=== PATIENT | female | born 1965 | race Caucasian/White ===

== ENCOUNTER 2025-02-02 13:31 | Emergency (ER) | payer OTHER, SELFPAY ==
[2025-02-02 13:38] VITALS: BP 113/73
[2025-02-02 13:57] LABS: Hematocrit 38.7 % (37.0-47.0); Hemoglobin 12.9 g/dL (12.0-16.0); Mean Corp Hgb Conc. 33.3 g/dL (33.0-37.0); Mean Corpuscular Hgb 29.2 pg (27.0-31.0); Mean Corpuscular Volume 87.6 fL (81.0-99.0); Platelet Count 408 10^3/uL (130-400); Red Blood Cell Count 4.42 10^6/uL (4.20-5.40); Red Cell Dist. Width 14.1 % (11.5-14.5); White Blood Cell Count 12.3 10^3/uL (4.8-10.8)
[2025-02-02 14:18] LABS: Troponin I < 0.012 ng/ml
[2025-02-02 14:28] LABS: ALT (SGPT) 17 U/L (0-35); AST (SGOT) 20 U/L (14-36); Albumin 4.4 g/dl (3.5-5.0); Alkaline Phosphatase 81 U/L (38-126); Blood Urea Nitrogen 16 mg/dl (7-17); Calcium 9.3 mg/dl (8.4-10.2); Carbon Dioxide 26 mmol/L (22-30); Chloride 102 mmol/L (98-107); Glucose 203 mg/dl (70-99); Sodium 140 mmol/L (135-145); Total Bilirubin 0.4 mg/dl (0.2-1.3); Total Protein 7.2 g/dl (6.3-8.2); eGFR > 60.00
[2025-02-02 15:31] LABS: % Basophils 1.2 % (0-2); % Immature Granulocytes 0.4 % (0-0.5); % Monocytes 6.2 % (1.7-9.3); % Neutrophils 56.2 % (42.2-75.2); Absolute Basophils 0.2 10^3/uL (0-0.2); Absolute Eosinophils 0.1 10^3/uL (0-0.7); Absolute Immature Granulocytes 0.1 10^3/uL (0-0.05); Absolute Lymphocytes 4.3 10^3/uL (1.2-3.4); Absolute Monocytes 0.8 10^3/uL (0.1-0.6); Absolute Neutrophils 6.9 10^3/uL (1.4-6.5); Nucleated Red Blood Cells % 0 %
[2025-02-02 16:10] VITALS: BP 144/72
--- NOTE | 2025-02-02 16:38 | ED.GENMED ---
History of Present Illness
General
Chief Complaint: Chest Pain
Source: patient
Exam Limitations: none
Time Seen by Provider: 02/02/25 16:09
Nursing documentation reviewed up to this point in time: agreed with
History of Present Illness
History of Present Illness:
Patient is a 59-year-old female with history migraines, hyperlipidemia, elevated platelets presenting to the emergency department for evaluation of multiple symptoms. Patient states on Sunday she started to 'not feel right'. She reports a sharp
pain across her mid chest associated with mild difficulty breathing, and lightheadedness. Patient denies any true dizziness sensation or back pain. She took her blood pressure at that time and found that her BP was elevated in 160s/80s. Over the
past few days symptoms have persisted and patient states that today she has a headache which did not fully respond to medication at home. Patient denies any fevers, chills, cough, neck pain, visual changes.
Patient has no personal or family history of blood clots or clotting disorders. No recent travel or recent surgery. No exogenous hormone use.
She does however have a family history of CAD.
Past History
Past History
ED Past Medical History: Asthma, HTN, Hypercholesterolemia, NIDDM (Diet Controlled), Psychiatric (Bipolar disorder) and Other (Degenerative disc disease cervical spine)
ED Past Surgical History: Appendectomy, Cholecystectomy, Gynecological (partial hysterectomy) and Other (Splenectomy, Portionof Pancreas removed)
Social History
Tobacco: Non-smoker
Alcohol: None
Drug: None
Personal:
Living: with family
Family History
Family History: Other (No significant)
Review of Systems
Review of Systems
Allergies reviewed?: Yes
All Other Systems: ROS reviewed and negative except as documented in HPI and ROS
Phy Exam
Physical Exam
Physical Exam:
Vitals: Tachycardic on arrival, otherwise vital signs stable. Afebrile
General: Patient is well appearing, no acute distress. Nontoxic appearing
Skin: Warm and dry, no rashes or lesions
Head: Normocephalic, atraumatic
Eyes: Sclera nonicteric. EOMs intact. No nystagmus.
Throat: Protecting airway
Neck: Normal ROM, no cervical spine tenderness, no meningismus. No JVD
Cardiac: Regular rate and rhythm, no murmurs.
Pulm: Normal respiratory effort, no wheezes, rales, rhonchi heard on exam.
Abdomen: Abdomen soft and nontender.
Extremities: No evidence of cyanosis or edema. Palpable DP pulses bilaterally. Negative Homans' sign bilaterally.
Neuro: AAOx3. Grossly intact.
Psychiatric: Normal affect.
Scores
Heart Score for Chest Pain Patients
STEMI patient?: No
History: Slightly or Non-Suspicious
ECG: Normal
Age: >45 - <65 years
Risk Factors: 1 or 2 Risk Factors
Troponin: </= Normal Limit
Heart Score for Chest Pain Patients: 2
Heart Score Risk: 2.5% MACE over next 6 weeks
Course
Orders/Labs/Results
Orders:
Orders
02/02/25 13:32
Electrocardiogram (*1) Urgent
Reason for Study: Chest Pain
EKG- Treatment ONCE
02/02/25 13:44
Complete Blood Count/With Diff Urgent
Comprehensive Metabolic Panel Urgent
Troponin I Urgent
02/02/25 16:30
EKG- Treatment ONCE
0.9% Sodium Chloride 1000 ml [Nss] 1,000 ml IV BOLUS
Acetaminophen [Tylenol] 650 mg PO NOW STA
02/02/25 16:45
Electrocardiogram (*1) Urgent
Reason for Study: Chest Pain
02/02/25 16:50
COVID-19 Antigen Urgent
Source: Nasal Swab
D-Dimer Urgent
Troponin I Urgent
Influenza A+B Rapid Molecular Urgent
DAWNA Source: Nasal Swab
Specimen Description:
02/02/25 17:44
CR Chest - 2 Views Urgent
Comment:
Reason For Exam: Chest pain
Abnormal Lab Results
02/02/25
13:44
WBC 12.3 H 10^3/uL
(4.8-10.8)
Plt Count 408 H 10^3/uL
(130-400)
Abs Immat Gran (auto) 0.1 H 10^3/uL
(0-0.05)
Absolute Neuts (auto) 6.9 H 10^3/uL
(1.4-6.5)
Absolute Lymphs (auto) 4.3 H 10^3/uL
(1.2-3.4)
Absolute Monos (auto) 0.8 H 10^3/uL
(0.1-0.6)
Glucose 203 H mg/dl
(70-99)
02/02/25 13:44
02/02/25 13:44
Vital Signs
Initial and Last Documented VS:
Initial Vital Signs
Temp Pulse Resp BP Pulse Ox
98.2 F 105 16 113/73 98
02/02/25 13:38 02/02/25 13:38 02/02/25 13:38 02/02/25 13:38 02/02/25 13:38
Last Documented Vital Signs
Temp Pulse Resp BP Pulse Ox
98.2 F 80 18 133/79 99
02/02/25 13:38 02/02/25 18:02 02/02/25 18:02 02/02/25 19:25 02/02/25 19:27
MDM/Problems Addressed
Differential Diagnosis Includes:
Not limited to: Viral illness, acute dehydration, pericarditis, myocarditis, acute coronary syndrome, pulmonary embolism, etc.
MDM/Problems Addressed:
Patient is a 59 year-old female with history as documented presenting with concerns of elevated blood pressure associated with chest pain. Symptoms somewhat intermittent over the past few days. No true exertional component to symptoms. Patient
mildly hypertensive and tachycardic on arrival, otherwise vital signs stable. Physical exam as above. Patient overall very well appearing, in no apparent distress. Cardio/pulmonary exam unremarkable. Patient has 2+ radial pulses bilaterally. Neuro
exam w/o focal deficits. Basic labs were initiated in triage. Mild leukocytosis otherwise unremarkable. Initial troponin undetectable with non ischemic EKGi. Given mild pleuritic component to symptoms � will obtain D dimer. Although low suspicion
for acute coronary syndrome � will repeat troponin/ EKG to trend.
Update: viral swabs negative. Fortunately, d-dimer was negative. Repeat troponin undetectable with an unchanged EKG. Patient�s blood pressure / heart rate have normalized without intervention w/o any evidence of end organ damage. CXR without acute
abnormalities. Patient remains very well and comfortable appearing. Serial troponin negative x 2 w/ undetectable d-dimer. Extensive workup in ED negative. Very low suspicion for emergent process today. Feel stable for discharge home with primary
care follow- up. Will provide referral information for cardiology given family history. Patient comfortable with plan. Very strict return precautions discussed.
Chronic conditions affecting care:
Hyperlipidemia, DM
Acute Exacerbation and/or Progression of Chronic Illness:
Acutely hyperglycemic
*Radiology
Radiology exam reviewed: preliminary read by ED provider (chest xray reviewed by me- no acute abnormalities) and radiology read reviewed
*Pulse Oximetry
Patient hypoxic: no
*EKG
Interpreted by ED Provider?: Yes
EKG Intrepretation Date: 02/02/25
Interpretation: normal
Comparison EKG: no changes
Heart Rate: 100
Rate: normal
Rhythm: sinus
[place]: normal axis
Interval: normal QT interval
QRS Pattern: normal QRS
Ischemia: no ischemia
*Animal Warden Interpretation
Rate: normal
Interpretation: normal
Heart Rate: 88
Rhythm: sinus
*Critical Care Note
Total Time (30-74mins, 75-104mins- exclusive of procedures): Not Applicable
ED Attending Note
-
Portions of this chart may have been created with voice recognition software.� Occasional wrong word or��sound alike� substitutions may have occurred due to the inherent limitations of voice recognition software.
Discharge Plan
Departure
Patient Disposition: Home (Routine Discharge)
Date of Disposition: 02/02/25
Time of Disposition: 19:20
Patient with high blood pressure during this ER visit?: Yes
Discharge Problem:
Hypertension, Chest pain
Instructions: High blood pressure - ED discharge instructions, BLOOD PRESSURE, Chest Pain
Prescriptions:
No Action
Albuterol Nebulizer
0.5 ml continuous nebulization PRN PRN (Reason: shortness of breath)
albuterol sulfate 1 PUFF HFA aerosol inhaler
2 puff IH QID
omeprazole 20 MG capsule,delayed release(DR/EC)
20 mg PO BID
bupropion HCl 200 MG tablet sustained-release 12 hr
200 mg PO BID
prednisone 10 MG tablet
10 mg PO .TAPER Qty: 45 0RF
Rx Instructions:
Take 50mg daily x3days, 40mg daily x3days,
30mg daily x3days, 20mg daily x3days,
10mg daily x3days
prednisone 20 MG tablet
20 mg PO BID Qty: 10 0RF
famotidine 20 MG tablet
20 mg PO BID Qty: 10 0RF
prednisone 50 MG tablet
50 mg PO DAILY Qty: 1 0RF
Referrals:
Wilber Baig MD [Active] - Next open appointment
Sheeba Pizano DO [Family Provider] -
Activity Restrictions/Additional Instructions:
Return to the emergency department with any high fevers, cough, chest pain, shortness of breath, severe back pain, worsening current symptoms, or any other concerns
- You continue to take Tylenol/Motrin as needed for headache. Stay well-hydrated.
- Continue to take all your medications as prescribed
- Follow-up with your primary care later this week for further evaluation/management and to ensure that symptoms are improving
- You should follow-up with cardiology as well in the future for further evaluation
Monitor your symptoms closely and return to the emergency department with any acute worsening/new symptoms or any other concerns
Interventions
Interventions:
*Risk Screen - Suicide Last Done: 02/02/25 13:38
*General Assessment Last Done: 02/02/25 18:45
*Neglect/Abuse Screening Last Done: 02/02/25 13:38
*ED- Fall Risk Assessment Last Done: 02/02/25 18:45
*ED COVID-19 Vaccine History Last Done: 02/02/25 17:21
*Nursing Disposition Last Done: 02/02/25 19:28
ED- Cardiac Assessment Last Done: 02/02/25 17:21
Discharge Date and Time
Discharge Date/Time: 02/02/25 19:30
Print Language: [id number]
[2025-02-02 17:00] VITALS: BP 126/72
[2025-02-02] MEDS: TYLENOL 650 MG PO (17:02)
[2025-02-02] MEDS: NSS 1000 IV (17:03)
[2025-02-02 17:18] LABS: D-Dimer < 0.27 ug/mlFEU (0.00-0.50)
[2025-02-02 17:28] LABS: Troponin I < 0.012 ng/ml
[2025-02-02 17:39] LABS: COVID-19 Antigen Negative (Negative)
[2025-02-02 18:00] VITALS: BP 135/72
[2025-02-02 19:25] VITALS: BP 133/79
== END 2025-02-02 19:30 | disposition home or self-care (01) ==
LOC: EMR 13:31
PROVIDERS: Physician Assistant; Student in an Organized Health Care Education/Training Program; EMERGENCY PHYSICIAN Emergency Medicine; FAMILY PHYSICIAN Family Medicine
DX: R07.9 Chest pain, unspecified (principal); I10 Essential (primary) hypertension; Z11.52 Encounter for screening for COVID-19; E78.00 Pure hypercholesterolemia, unspecified; E11.9 Type 2 diabetes mellitus without complications; J45.909 Unspecified asthma, uncomplicated; Z90.81 Acquired absence of spleen
CPT/HCPCS: 99285; 96360; 71046; 80053; 84484; 85025; 85379; 87502; 87811; 93005